=== PATIENT | male | born 1960 | race Native Hawaiian/Other Pacific Islander ===

== ENCOUNTER 2021-07-10 13:15 | Emergency (ER) | payer BC ==
[~2021-07-10] VITALS: Ht 185.4 cm; Wt 136.1 kg
[2021-07-10 13:34] LABS: PLATELET COUNT 148 K/uL (142-355)
[2021-07-10 13:56] LABS: POTASSIUM 3.6 mmol/L (3.6-5.2)
[2021-07-10] MEDS ORDERED: MECLIZINE25 MG PO (15:56)
[2021-07-10] MEDS ORDERED: CLINDAMYCIN HY300 MG PO (15:56)
[2021-07-10 16:16] VITALS: BP 154/81; TEMP 98.7
== END 2021-07-10 16:19 | disposition home or self-care (01) ==
LOC: ED 13:15
PROVIDERS: Emergency Medicine
DX: L03.115 Cellulitis of right lower limb (principal); M86.8X6 Other osteomyelitis, lower leg; R42 Dizziness and giddiness
CPT/HCPCS: 80053; 80307; 81000; 84484; 85027; 93005; 99283